=== PATIENT | female | born 1985 | race African-American/Black ===

== ENCOUNTER 2017-03-16 10:56 | Emergency (ER) | payer BC ==
[~2017-03-16 10:56] MED LIST: AVONEX IM; DENIES MEDS; DURICEF PO; LYRICA75 PO; OXYCOD PO; PERCOCET PO; PERCOCET1 TA4 PO; REBI1 SC
== END 2017-03-16 10:58 | disposition home or self-care (01) ==
LOC: ER 10:56
PROC: 0H9GXZZ Drainage of Left Hand Skin, External Approach (ICD-10-PCS; principal; 2017-03-16)
DX: L03.012 Cellulitis of left finger (principal); G35 Multiple sclerosis; Z88.0 Allergy status to penicillin; Z91.012 Allergy to eggs; Z79.899 Other long term (current) drug therapy
CPT/HCPCS: 96372; 99282; J1885; J2930